=== PATIENT | male | born 1970 | race Caucasian/White ===

== ENCOUNTER 2025-03-24 08:18 | Outpatient (CLI) | payer OTHER ==
--- NOTE | 2025-03-24 10:46 | RADIOLOGY REPORT ---
PROCEDURE: MR MRA NECK INDICATION: CERVICAL SPINAL STENOSIS Exam Date: 03/24/2025 08:56 AM COMPARISON: None TECHNIQUE: MRA neck without intravenous contrast. 3D image postprocessing was performed on a dedicated workstation and images were used for interpretat ion and reporting. FINDINGS: MRA neck: The visualized thoracic aortic arch and proximal great vessels are unremarkable. There is no evidenc e of hemodynamically significant stenosis involving the bilateral common and internal carotid arterie s. The cervical vertebral arteries are patent. There is no evidence of dissection. IMPRESSION: 1. No evidence of hemodynamically significant cervical stenosis or dissection. HS:Y
== END 2025-03-24 23:59 | disposition home or self-care (01) ==
LOC: MRI02 08:18
PROVIDERS: ATTEND Emergency Medicine
DX: M48.02 Spinal stenosis, cervical region (principal)
CPT/HCPCS: 70547